=== PATIENT | male | born 1955 | race Caucasian/White ===

== ENCOUNTER → 2017-02-28 | Day surgery (SDC) | payer BC ==
[~2017-02-28] MED LIST: ASPIRIN CHILDRE81 MG PO; BYSTOLIC10 MG; CIPROFLOXACIN500 MG PO; FLOMAX0.4 MG; FLOMAX0.4 MG PO; LISINOPRIL HCTZ1 TA1; Lopressor25 MG PO; MACROBID100 M1 PO; OMEPRAZOLE D/R20 MG; ORAXYL20 MG PO; SIMVASTATIN20 MG
--- NOTE | ~2017-02-28 | O ---
[place], [place] O[facility]AT[id number] UNIT #: [id number] ROOM: DOCTOR: LIDIA TEIXEIRA MD BIRTHDATE: [birth year] DOS: 02/28/2017 PREOPERATIVE DIAGNOSIS: Cataract, right eye. POSTOPERATIVE DIAGNOSIS: Cataract, right eye. OPERATION: Extracapsular cataract extraction by phacoemulsification with posterior chamber intraocular lens implantation, right eye. ANESTHESIA: Monitored standby. OPERATIVE FINDINGS AND PROCEDURE: 2% Xylocaine topical anesthetic gel was applied to the eye in the preop area. The patient was taken to the operating room and prepped and draped in the standard fashion for sterile intraocular surgery. A time out procedure was performed verifying correct patient, correct site and corrects lens with Aminah Teixeira M.D. The operating microscope was swung into position and the lid speculum was inserted. Using a Arti paracentesis blade, a paracentesis was made through clear cornea. Viscoelastic was used to fill the anterior chamber. Using a metal keratome a 2.4 mm self-sealing clear corneal cataract incision was made temporally at the limbus. Using a pre-bent 25 gauge cystotome needle, a standard continuous curvilinear capsulorrhexis was performed. The anterior capsule was removed with forceps. The lens nucleus was hydrodissected and phacoemulsified in the posterior chamber. Cortical material was removed with the irrigation aspiration hand piece and the posterior capsule was then polished with a curet under irrigation. The posterior chamber and capsular bag were filled with viscoelastic. A posterior chamber intraocular lens manufactured by: [employer], Model #[id number], and 15.5 diopters in strength were then inserted into the posterior chamber and within the capsular bag using the lens cartridge and injector system. Viscoelastic was removed using the irrigation aspiration handpiece. The anterior chamber was filled with balanced salt solution through the paracentesis. Both the paracentesis site and cataract incisions were hydrated with BSS and verified to be water-tight and self-sealing. Cefuroxime 1 mg/0.1 mL was injected into the anterior chamber through the paracentesis site. The incision checked to be water-tight using a Weck-Heather sponge. The integrity of the cataract wound and ocular tension were checked. Lid speculum and drapes were removed. The patient was transferred from the operating room to the recovery room in satisfactory condition. [place], [place] OPERATIVE NOTE NAME: TRACY ROY Wendy UNIT #: [id number] ROOM: DOCTOR: LIDIA TEIXEIRA MD BIRTHDATE: [birth year] LIDIA TEIXEIRA MD CM:OPRECORD:OPERATIVE NOTE [id number] LIDIA TEIXEIRA MD 02/28/17 1813 interface
[2017-02-28 11:54] VITALS: BP 132/98
[2017-02-28 12:40] VITALS: BP 119/74
[2017-02-28 12:57] VITALS: BP 110/66
[2017-02-28 13:13] VITALS: BP 121/80
== END | disposition home or self-care (01) ==
LOC: SDC 02-23 16:15
DX: H26.9 Unspecified cataract (principal); N40.0 Benign prostatic hyperplasia without lower urinary tract symptoms; K21.9 Gastro-esophageal reflux disease without esophagitis; I10 Essential (primary) hypertension; Z98.890 Other specified postprocedural states

== ENCOUNTER 2017-03-06 10:51 | Emergency (ER) | payer OTHER, BC ==
[~2017-03-06] VITALS: Ht 182.8 cm; Wt 79.4 kg
[2017-03-06 10:51] VITALS: BP 122/79
[2017-03-06] MEDS ORDERED: CYCLOBENZAPRINE10 MG PO (13:26)
[2017-03-06] MEDS ORDERED: NORCO 5-325 TA1 EACH PO (13:26)
== END 2017-03-06 13:31 | disposition home or self-care (01) ==
LOC: ED 10:51
DX: S22.41XA Multiple fractures of ribs, right side, initial encounter for closed fracture (principal); S16.1XXA Strain of muscle, fascia and tendon at neck level, initial encounter; S39.012A Strain of muscle, fascia and tendon of lower back, initial encounter; I10 Essential (primary) hypertension; E78.5 Hyperlipidemia, unspecified; K21.9 Gastro-esophageal reflux disease without esophagitis; Z88.2 Allergy status to sulfonamides; Z79.82 Long term (current) use of aspirin; V43.52XA Car driver injured in collision with other type car in traffic accident, initial encounter; Y93.89 Activity, other specified; Y92.413 State road as the place of occurrence of the external cause; Y99.8 Other external cause status

== ENCOUNTER → 2017-03-28 | Day surgery (SDC) | payer BC ==
[~2017-03-28] MED LIST changes: +CYCLOBENZAPRINE10 MG PO; +NORCO 5-325 TA1 EACH PO
--- NOTE | ~2017-03-28 | WILSON ---
[place], [place] CATARACT EXTRACTION NAME: TRACY ROY [facility] #: [id number] UNIT #: [id number] ROOM: DOCTOR: LIDIA MACIAS MD DATE: 03/28/17 PREOPERATIVE DIAGNOSIS: Cataract, left eye. POSTOPERATIVE DIAGNOSIS: Cataract, left eye. OPERATION: Extracapsular cataract extraction by phacoemulsification with posterior chamber intraocular lens implantation, left eye. ANESTHESIA: Monitored standby. OPERATIVE FINDINGS AND PROCEDURE: 2% Xylocaine topical anesthetic gel was applied to the eye in the preop area. The patient was taken to the operating room and prepped and draped in the standard fashion for sterile intraocular surgery. A time out procedure was performed verifying correct patient, correct site and corrects lens with Aminah Macias M.D. The operating microscope was swung into position and the lid speculum was inserted. Using a paracentesis blade, a paracentesis was made through clear cornea. Viscoelastic was used to fill the anterior chamber. Using a metal keratome a 2.4 mm self-sealing clear corneal cataract incision was made temporally at the limbus. Using a pre-bent 25 gauge cystotome needle, a standard continuous curvilinear capsulorrhexis was performed. The anterior capsule was removed with forceps. The lens nucleus was hydrodissected and phacoemulsified in the posterior chamber. Cortical material was removed with the irrigation aspiration hand piece and the posterior capsule was then polished with a curet under irrigation. The posterior chamber and capsular bag were filled with viscoelastic. A posterior chamber intraocular lens manufactured by: [employer], Model #[id number], and 15.5 diopters in strength was then inserted into the posterior chamber and within the capsular bag using the lens cartridge and injector system. Viscoelastic was removed using the irrigation aspiration handpiece. The anterior chamber was filled with balanced salt solution through the paracentesis. Both the paracentesis site and cataract incisions were hydrated with BSS and verified to be water-tight and self-sealing. Cefuroxime 1 mg/0.1 mL was injected into the anterior chamber through the paracentesis site. The incision checked to be water-tight using a Weck-gene sponge. The integrity of the cataract wound and ocular tension were checked. Lid speculum and drapes were removed. One drop of Ocuflox was applied to the eye. The patient was transferred from the operating room to the recovery room in satisfactory condition. LIDIA POWERS MD CM:OPRECORD:CATARACT EXTRACTION [phone] [id number] LIDIA MACIAS MD 03/28/171827 LESLI [email or web address].R
[2017-03-28 11:01] VITALS: BP 133/85
[2017-03-28 11:30] VITALS: BP 120/60
[2017-03-28 11:45] VITALS: BP 116/58
[2017-03-28 12:00] VITALS: BP 120/60
== END | disposition home or self-care (01) ==
LOC: SDC 03-22 14:45
DX: H26.9 Unspecified cataract (principal); I10 Essential (primary) hypertension; K21.9 Gastro-esophageal reflux disease without esophagitis; F41.9 Anxiety disorder, unspecified; F17.210 Nicotine dependence, cigarettes, uncomplicated; Z88.2 Allergy status to sulfonamides; Z90.49 Acquired absence of other specified parts of digestive tract; Z98.890 Other specified postprocedural states; Z79.899 Other long term (current) drug therapy